=== PATIENT | male | born 1940 | race Caucasian/White ===

== ENCOUNTER → 2016-11-30 | Outpatient (CLI) | payer MEDICARE, OTHER ==
[~2016-11-30] MED LIST: ALBU2.5V4 IH; CETI5TAB6 PO; DOXY100T2 PO; FEBU80TA PO; FLUT1AER IH; FLUT9.9S NS; FURO-124 PO; LATA2.5D5 OP; LD5O35 TP; LINA5TAB PO; MINO50TA9 PO; MONT10TA24 PO; PIOG30TA38 PO; PRD10T PO; PRD20T PO; PREG75CA PO; WARF2.5T PO; WARF5TAB PO
--- NOTE | 2016-11-30 15:19 | Diagnostic Imaging Report ---
PROCEDURE: CT chest without contrast. TECHNIQUE: Multiple contiguous axial images were obtained through the chest without the use of intravenous contrast. INDICATION: Followup lung nodule. History of chronic smoking. COMPARISON: 04/01/2016. FINDINGS: There is a 7 mm pulmonary nodule in the right lung apex without change from the prior exam. There is mild scarring in the bases again seen without significant change. There is no significant consolidation or lung mass. There is some respiratory motion artifact seen in the exam with no significant limitation of evaluation of the right lung apex and overall acceptable evaluation for major abnormalities. The mediastinum demonstrate stable borderline sized precarinal lymph node measuring 0.9 cm in short axis. No mediastinal mass or significantly enlarged lymph node is seen otherwise. The heart size is enlarged with a small pericardial effusion similar to the previous exam. No pleural effusion. Prominent coronary artery calcifications are seen. Sections in the upper abdomen demonstrate diffuse hepatic steatosis. The osseous structures demonstrate mild degenerative changes. IMPRESSION: 1. Stable 7 mm right lung apex nodule. Followup study in 9-12 months is recommended to ensure further stability. 2. Cardiomegaly. Small pericardial effusion. Dictated by: Dictated on workstation # [id number]
== END ==
LOC: RAD 12:49
PROVIDERS: ATTEND Nurse Practitioner Family
DX: R91.1 Solitary pulmonary nodule (principal); J44.9 Chronic obstructive pulmonary disease, unspecified
CPT/HCPCS: 71250

== ENCOUNTER 2017-01-11 01:49 | Emergency (ER) | payer MEDICARE, OTHER ==
[~2017-01-11] VITALS: Ht 170.2 cm; Wt 63.5 kg
[~2017-01-11 01:49] MED LIST changes: -LD5O35 TP; -MINO50TA9 PO
[2017-01-11] MEDS ORDERED: LIDOCAINE 5% ONE (03:27)
[2017-01-11] MEDS ORDERED: LIDOCAINE 5% TOP PRN (03:30)
[2017-01-11] MEDS ORDERED: DOXYCYCLINE 100 MG (VIBRAMYCIN) TABLET PO ONE (03:30)
[2017-01-11] MEDS ORDERED: LD5O35 TP (03:30)
[2017-01-11] MEDS ORDERED: MINO50TA9 PO (03:30)
--- NOTE | 2017-01-11 03:30 | ED Integumentary General ---
General Chief Complaint: Skin/Wound Problems Stated Complaint: SKIN IRRATION Nursing Triage Note: AREA OF CONCERN ON TORSO/SHOULDER Source: patient Exam Limitations: no limitations History of Present Illness Time seen by provider: 03:03 Initial Comments This patient is brought to the emergency room by his with complaints of pruritic rash on his back, shoulders, and a little bit on his abdomen. He has been seen for this previously in the clinic and was prescribed betamethasone ointment. This did help the itching and rash initially but he experienced rebound symptoms. He is currently using Eucerin cream which does not seem to be of much benefit. Topical Benadryl was a little more effective. The rash is a scattered vesicular and pustular rash that then develops into ulcerations. When lesions are scratched, they sometimes bleed. They can identify no new medications or exposures that could account for the rash. Allergies and Home Medications Allergies Coded Allergies: No Known Drug Allergies (Unverified , 08/19/15) Home Medications Albuterol Sulfate 2.5 Mg/3 Ml Vial.neb #50 2.5 MG IH Q4H PRN PRN WHEEZING Prescribed by: FAVIO NOLAN on 10/06/16 1309 Cetirizine HCl 5 Mg Tablet 5 MG PO DAILY (Reported) Febuxostat 80 Mg Tablet 80 MG PO DAILY (Reported) Febuxostat 80 Mg Tablet #30 80 MG PO DAILY Prescribed by: CHAMP BARAHONA on 07/04/16 0023 Fluticasone Propionate 9.9 Ml Ethel.susp 9.9 ML NS BID (Reported) Fluticasone/Vilanterol 1 Each Blst.w.dev 1 EACH IH DAILY (Reported) Latanoprost 2.5 Ml Drops #3 1 DROP OP UD (Reported) Lidocaine HCl 35 Gm Oint #1 35 GM TP Q6H PRN PRN ITCHING Prescribed by: JEANETTE SHAFER on 01/11/17 0330 Linagliptin 5 Mg Tablet 5 MG PO DAILY (Reported) Minocycline HCl 50 Mg Tablet #20 50 MG PO BID Prescribed by: JEANETTE SHAFER on 01/11/17 0330 Montelukast Sodium 10 Mg Tablet 10 MG PO DAILY (Reported) Pioglitazone HCl 30 Mg Tablet 30 MG PO DAILY (Reported) Prednisone 20 Mg Tab #6 40 MG PO DAILY Prescribed by: TERRIE TREVIÑO on 02/21/16221 Prednisone 20 Mg Tab #6 40 MG PO DAILY Prescribed by: CHAMP BARAHONA on 10/06/16219 Pregabalin 75 Mg Capsule 75 MG PO BID (Reported) Warfarin Sodium 5 Mg Tablet 5 MG PO EVERY OTHER DAY (Reported) Warfarin Sodium 2.5 Mg Tablet 2.5 MG PO EVERY OTHER DAY (Reported) Constitutional: no symptoms reported EENTM: no symptoms reported Respiratory: other (chronic cough and dyspnea) Cardiovascular: no symptoms reported Gastrointestinal: no symptoms reported Skin: see HPI Past Mcvdjlg-[id number]-Ysafnp Hx Patient Social History Alcohol Use: Denies Use Recreational Drug Use: No Smoking Status: Current Everyday Smoker Type Used: Cigarettes Recent Foreign Travel: No Contact w/Someone Who Travel: No Recent Infectious Disease Expo: No Recent Hopitalizations: No Immunizations Up To Date Tetanus Booster (TDap): Unknown Seasonal Allergies Seasonal Allergies: No Surgeries HX Surgeries: Yes (MALIGNANT TUMOR BETWEEN BLADDER/PROSTATE REMOVED, COLONOSCOPY) Respiratory Hx Respiratory Disorders: Yes Respiratory Disorders: Asthma, COPD Cardiovascular Hx Cardiac Disorders: Yes Cardiac Disorders: Deep Vein Thrombosis Neurological Hx Neurological Disorders: No Neurological Disorders: Neuropathy, Stroke, TIA Reproductive System Hx Reproductive Disorders: No Genitourinary Hx Genitourinary Disorders: Yes (TUMOR REMOVED BETWEEN PROSTATE AND BLADDER ) Genitourinary Disorders: Prostate Problems, Renal Failure Gastrointestinal Hx Gastrointestinal Disorders: No Musculoskeletal Hx Musculoskeletal Disorders: Yes Musculoskeletal Disorders: Gout Endocrine Hx Endocrine Disorders: Yes Endocrine Disorders: Diabetes, Non-Insulin dep HEENT HX ENT Disorders: Yes HEENT Disorders: Cataract Loss of Vision: Denies Hearing Impairment: Denies Cancer Hx Cancer: Yes (TUMOR BETWEEN BLADDER/PROSTATE) Cancer: Bladder, Prostate Psychosocial Hx Psychiatric Problems: No Integumentary HX Skin/Integumentary Disorder: No Blood Transfusions Hx Blood Disorders: No Family Medical History Significant Family History: No Pertinent Family Hx Family Medial History: Congenital heart disease FH: breast cancer G8 SISTER FH: lung cancer 19 FATHER Physical Exam Vital Signs Vital Sign - Last 12Hours 01/11/17 02:14 Temp 98.1 Pulse 74 Resp 18 B/P 182/83 Pulse Ox 95 O2 Delivery Room Air Capillary Refill : Less Than 3 Seconds General Appearance: WD/WN no apparent distress HEENT: PERRL/EOMI normal ENT inspection Neck: normal inspection Cardiovascular: regular rate, rhythm no murmur Respiratory: no respiratory distress rhonchi Neurologic/Psychiatric: irrigator overhead II-XII nml as tested alert normal mood/affect Skin: normal color warm/dry rash (lesions on the back, shoulders, and abdomen for various stages. Some early lesions are vesicular and pustular. Older lesions are ulcerated. Some are excoriated and bleeding.) Progress/Results/Core Measures Results/Orders My Orders Orders-JEANETTE WILLIAMSON MD Lidocaine 5% Oint 35 Gm (Xylocaine 5% Oi (01/11/17 03:30) Doxycycline Hyclate Tablet (Vibramycin T (01/11/17 03:30) Lidocaine 5% Oint 35 Gm (Xylocaine 5% Oi (01/11/17 03:27) Medications Given in ED Current Medications Medications Dose Ordered Sig/Eli Route Start Time Stop Time Status Last Admin Dose Admin Doxycycline Hyclate 100 mg ONCE ONCE PO 01/11/17 03:30 01/11/17 03:31 DC 01/11/17 03:34 100 MG Lidocaine HCl APPLY SPARINGLY 5XD PRN TOP 01/11/17 03:30 01/11/17 03:44 DC 01/11/17 03:34 35 GM Vital Signs/I&O Vital Sign - Last 12Hours 01/11/17 01/11/17 02:14 03:44 Temp 98.1 98.0 Pulse 74 72 Resp 18 18 B/P 182/83 Pulse Ox 95 98 O2 Delivery Room Air Blood Pressure Mean: 116 Progress Note : Progress Note A tube of lidocaine ointment was dispensed. Patient was given a doxycycline tablet. I question a possible infectious etiology due to the vesicular and pustular early lesions. I suggested a trial of minocycline. I cautioned that INR may need to be monitored more closely while on antibiotics. I also suggested reviewing side effects of medications closely with a member of Dr. Moscoso staff to exclude medication effect as a cause. See discharge instructions. Departure Impression Impression: Primary Impression: Pruritic rash Disposition: 01 HOME, SELF-CARE Condition: Improved Departure-Patient Inst. Decision time for Depature: 03:15 Referrals: ANAIS MOSCOSO MD (PCP) Primary Care Physician Patient Instructions: Skin Rash Add. Discharge Instructions: Try a 10 day course of the minocycline as prescribed. If the rash is infectious in origin, minocycline should help within a 10 day period of time. You may need to monitor INR more closely while on antibiotics. Please contact Dr. Moscoso to inform her you have started an antibiotic and need closer INR monitoring. For immediate relief of itching, try the lidocaine ointment. You may also use a Benadryl every 6 hours to help calm itching. Return to care if symptoms are not improving. Consider a referral to a agent broker or Dr. Whittington if Dr. Moscoso feels this is appropriate. All discharge instructions reviewed with patient and/or family. Voiced understanding. Scripts Lidocaine HCl (Lidocaine)35 Gm Oint35 Gm TP Q6H PRN ITCHING #1 TUBE Prov:JEANETTE WILLIAMSON MD 01/11/17 Minocycline HCl 50 Mg [id number] Mg PO BID #20 TAB Prov:JEANETTE WILLIAMSON MD 01/11/17 Copy Copies To 1: ANAIS MOSCOSO MD, JOSHUA T MD Jan 11, 2017 03:30
[2017-01-11 03:44] VITALS: BP 168/81
== END 2017-01-11 03:42 | disposition home or self-care (01) ==
LOC: EDUNIT# 01:49 → ER 01:52
DX: L29.9 Pruritus, unspecified (principal); J44.9 Chronic obstructive pulmonary disease, unspecified; E11.9 Type 2 diabetes mellitus without complications; F17.210 Nicotine dependence, cigarettes, uncomplicated; Z79.01 Long term (current) use of anticoagulants; Z79.84 Long term (current) use of oral hypoglycemic drugs; Z79.899 Other long term (current) drug therapy; Z86.73 Personal history of transient ischemic attack (TIA), and cerebral infarction without residual deficits
CPT/HCPCS: 99283

== ENCOUNTER 2017-04-12 13:28 | Outpatient (RCR) | payer MEDICARE, OTHER ==
[~2017-04-12 13:28] MED LIST changes: +LD5O35 TP; +MINO50TA9 PO
== END 2017-04-12 14:12 | disposition home or self-care (01) ==
PROVIDERS: ATTEND Family Medicine
DX: R53.1 Weakness (principal)